=== PATIENT | female | born 1975 | race Caucasian/White ===

== ENCOUNTER 2017-11-22 19:22 | Inpatient (IN) | payer OTHER ==
[~2017-11-22] VITALS: Ht 157.5 cm; Wt 49.7 kg
[2017-11-22] MEDS ORDERED: OLANZapine IM 10 MG VIAL IM ONE (22:00)
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
[2017-11-22 22:52] LABS: ALBUMIN 2.4 GM/DL (3.4-5.0); ALT (GPT) 304 U/L (10-53); AST (GOT) 689 U/L (15-37); BICARBONATE 22.9 MEQ/L (21.0-32.0); BLOOD UREA NITROGEN 8 MG/DL (7-18); CALCIUM 7.6 MG/DL (8.5-10.1); CHLORIDE 103 MEQ/L (98-107); CREATININE 1.03 MG/DL (0.50-1.00); GLOMERULAR FILTRATION RATE 59 ML/MIN (>89); GLUCOSE,RANDOM 109 MG/DL (74-106); SODIUM (NA) 136 MEQ/L (136-145)
[2017-11-22 22:57] LABS: AUTOMATED NEUTROPHIL # 6.3 TH/MM3 (1.8-7.7); BASOPHIL # 0.1 TH/MM3 (0-0.2); BASOPHIL % 0.8 % (0.0-2.0); EOSINOPHIL % 0.4 % (0.0-4.0); HEMATOCRIT 30.2 % (35.0-46.0); HEMOGLOBIN 10.7 GM/DL (11.6-15.3); LYMPH % 13.2 % (9.0-44.0); LYMPHOCYTE # 1.1 TH/MM3 (1.0-4.8); MEAN CELL VOLUME 91.3 FL (80.0-100.0); MEAN CORPUSCULAR HEMOGLOBIN 32.3 PG (27.0-34.0); MEAN CORPUSCULAR HGB CONC 35.4 % (32.0-36.0); MEAN PLATELET VOLUME 9.6 FL (7.0-11.0); MONO % 11.5 % (0.0-8.0); NEUT % 74.1 % (16.0-70.0); PLATELET COUNT 183 TH/MM3 (150-450); RED BLOOD COUNT 3.31 MIL/MM3 (4.00-5.30); WHITE BLOOD COUNT 8.5 TH/MM3 (4.0-11.0)
[2017-11-22 23:01] LABS: ALKALINE PHOSPHATASE 85 U/L (45-117); TOTAL PROTEIN 10.5 GM/DL (6.4-8.2)
[2017-11-22 23:17] LABS: TARGET CELLS 1+ (NORMAL)
[2017-11-23 00:09] LABS: ACETAMINOPHEN LESS THAN 2.0 MCG/ML (10.0-30.0)
--- NOTE | 2017-11-23 00:53 | RADRPT ---
EXAM DATE/TIME: 11/23/2017 00:16 [place] COMPARISON: No previous studies available for comparison. INDICATIONS : Right upper quadrant pain. MEDICAL HISTORY : Right upper quadrant pain. SURGICAL HISTORY : None. ENCOUNTER: Initial ACUITY: 1 day PAIN SCORE: 0/10 LOCATION: Right upper quadrant MEASUREMENTS: LIVER: 12.6 cm length COMMON DUCT: 5 mm RIGHT KIDNEY: 10.8 x 3.8 x 4.8 cm FINDINGS: LIVER: Normal echotexture without focal lesion or ductal dilatation. COMMON DUCT: No intraluminal mass or stone visualized. GALLBLADDER: Trace dependent sludge. Wall thickness upper limits of normal, 3 mm. Negative sonographic Santiago's si gn. PANCREAS: The visualized portions are within normal limits. RIGHT KIDNEY: No evidence of hydronephrosis, stone, or mass. CONCLUSION: No acute abnormality demonstrated. Augusto Izaguirre MD on November 23, 2017 at 0:49 Board Certified Radiologist. This report was verified electronically.
[2017-11-23] MEDS ORDERED: HYDR-3133 PO (06:29)
[2017-11-23] MEDS ORDERED: VENL37.595 PO (06:29)
[2017-11-23] MEDS ORDERED: TRAZ100T10 PO (06:29)
[2017-11-23 08:03] VITALS: BP 133/82; PULSE 90; RESP 17; TEMP 99.4; O2SAT 100
[2017-11-23] MEDS ORDERED: OLANZapine IM 10 MG VIAL IM ONE ×2 (13:49→14:00)
[2017-11-23] MEDS ORDERED: diphenhydrAMINE HCL 50 MG/ML VIAL ONE (13:49)
[2017-11-23 13:56] VITALS: BP 130/81; PULSE 99; RESP 20; TEMP 98.7; O2SAT 99
[2017-11-23] MEDS ORDERED: diphenhydrAMINE HCL 50 MG/ML VIAL IM ONE (14:00)
[2017-11-23] MEDS ORDERED: LORazepam 2 MG/ML VIAL IM ONE ×2 (15:45→21:46)
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
[2017-11-23 17:51] VITALS: BP 125/78; PULSE 76; RESP 18; TEMP 99.4; O2SAT 97
[2017-11-23] MEDS ORDERED: MAGNESIUM HYDROXIDE SUSP 30 ML CUP PO PRN (18:30)
[2017-11-23] MEDS ORDERED: ALUMINUM/MAGNESIUM/SIMETH 30 ML CUP PO PRN (18:30)
[2017-11-23 19:00] VITALS: BP 109/82; PULSE 82; RESP 20; TEMP 97.9; O2SAT 96
[2017-11-23] MEDS ORDERED: HALOPERIDOL LACTATE 5 MG/ML AMP IM ONE (21:46)
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
[2017-11-24] MEDS ORDERED: SODIUM CHLOR 0.9% 1000 ML INJ 1,000 ML IV ONE (09:45)
[2017-11-24] MEDS ORDERED: hydrOXYzine HCL 50 MG TAB PO PRN (10:15)
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
[2017-11-24] MEDS ORDERED: HALOPERIDOL LACTATE 5 MG/ML AMP IM STA (12:03)
[2017-11-24] MEDS ORDERED: LORazepam 2 MG/ML VIAL IM STA (12:03)
[2017-11-24] MEDS ORDERED: diphenhydrAMINE HCL 50 MG/ML VIAL IM STA (12:03)
[2017-11-24] MEDS ORDERED: LORazepam 2 MG/ML VIAL ONE (12:03)
[2017-11-24] MEDS ORDERED: HALOPERIDOL LACTATE 5 MG/ML AMP ONE (12:04)
[2017-11-24 14:08] LABS: INTERNATIONAL NORMALIZED RATIO 1.6 RATIO; PROTHROMBIN TIME - PATIENT 15.7 SEC (9.8-11.6)
[2017-11-24 14:24] LABS: HDL CHOLESTEROL 8.9 MG/DL (40.0-60.0)
[2017-11-24 14:48] LABS: BICARBONATE 29.2 MEQ/L (21.0-32.0); CALCIUM 8.1 MG/DL (8.5-10.1); CHLORIDE 103 MEQ/L (98-107); CHOLESTEROL 123 MG/DL (120-200); CHOLESTEROL/ HDL RATIO 13.82 RATIO; CREATININE 1.39 MG/DL (0.50-1.00); GLOMERULAR FILTRATION RATE 42 ML/MIN (>89); GLUCOSE,RANDOM 86 MG/DL (74-106); LDL CHOLESTEROL 96 MG/DL (0-99); SODIUM (NA) 137 MEQ/L (136-145); TRIGLYCERIDES 89 MG/DL (42-150)
[2017-11-24 14:49] LABS: BLOOD UREA NITROGEN 13 MG/DL (7-18)
[2017-11-24 18:00] VITALS: BP 113/63; PULSE 95; RESP 16; TEMP 98.6; O2SAT 96
--- NOTE | 2017-11-25 11:49 | HHI.PR ---
Subjective Remarks Patient seen and examined. No new somatic complaints. She is angry that she is in the hospital and is preoccupied with the idea that her is cheating on her and she feels that she dropped her off at the hospital to remove her from his life. Regarding her autoimmune hepatitis, she endorses stable, chronic abdominal discomfort. Denies nausea or vomiting. She requests to see her GI doctor, Dr. Berger, since she was supposed to have an appointment with him this week. Objective Vitals Vital Signs Date Time Temp Pulse Resp B/P (MAP) Pulse Ox O2 Delivery O2 Flow Rate FiO2 11/24/17 18:00 98.6 95 16 113/63 (80) 96 I/O 11/24/17 11/24/17 11/24/17 11/25/17 11/25/17 11/25/17 07:00 15:00 23:00 07:00 15:00 23:00 Intake Total 120 ml 720 ml 240 ml Balance 120 ml 720 ml 240 ml Intake Oral 120 ml 720 ml 240 ml # Voids 0 Result Diagram: 11/22/17 2200 11/24/17 1344 Objective Remarks GENERAL: WN, WD female laying comfortably in bed in NAD. SKIN: Warm and dry. HEENT: Pupils equal and round. + Scleral icterus. MMM. NECK: Supple no tender LAD or JVD. HEART: RRR no m/r/g. LUNGS: CTAB without wheezes or crackles. ABDOMEN: +BS. Soft, NT, ND. EXTREMITIES: No LE edema or calf tenderness. NEURO: Awake and alert. PSYCH: Hyperverbal. Angry. Teary. A/P Problem List: (1) Acute psychosis ICD Code: F23 - Brief psychotic disorder Status: Acute (2) Transaminitis ICD Code: R74.0 - Nonspecific elevation of levels of transaminase and lactic acid dehydrogenase [LDH] Status: Acute (3) Autoimmune hepatitis ICD Code: K75.4 - Autoimmune hepatitis (4) Hepatitis C ICD Code: B19.20 - Unspecified viral hepatitis C without hepatic coma Assessment and Plan 42 year old female admitted under Bartlett Act for acute psychosis. Patient with elevated LFTs on admission and with a history of autoimmune hepatitis. Hospitalist consulted to manage medical condition. 1. Autoimmune hepatitis/elevated LFTs/hepatitis C - LFTs markedly elevated with AST 689 and ALT 304 appears stable from [facility] admission - Total bili 5.0 - Ammonia <10, not encephalopathic - Reported history of autoimmune hepatitis diagnosed in 2008 and per pt was recommended to have liver transplant - RUQ US negative - Hepatitis profile pending - IgG significantly elevated - INR elevated at 1.6 - HCV RNA and genotype - GI is Dr. Crow, will consult - Avoid hepatotoxic agents 2. Acute psychosis - Managed per psych 3. DVT prophylaxis - Ambulatory Cherelle Cloud MD Nov 25, 2017 11:49
[2017-11-25 16:04] VITALS: BP 119/71; PULSE 92; RESP 16; TEMP 98; O2SAT 97
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
[2017-11-26 05:06] VITALS: BP 127/71; PULSE 89; RESP 16; TEMP 98.2; O2SAT 99
[2017-11-26 08:00] LABS: AUTOMATED NEUTROPHIL # 1.6 TH/MM3 (1.8-7.7); BASOPHIL # 0.1 TH/MM3 (0-0.2); BASOPHIL % 2.4 % (0.0-2.0); EOSINOPHIL # 0.2 TH/MM3 (0-0.4); EOSINOPHIL % 4.7 % (0.0-4.0); HEMATOCRIT 29.1 % (35.0-46.0); HEMOGLOBIN 10.1 GM/DL (11.6-15.3); LYMPH % 33.2 % (9.0-44.0); LYMPHOCYTE # 1.2 TH/MM3 (1.0-4.8); MEAN CELL VOLUME 92.4 FL (80.0-100.0); MEAN CORPUSCULAR HEMOGLOBIN 32.2 PG (27.0-34.0); MEAN CORPUSCULAR HGB CONC 34.8 % (32.0-36.0); MONO % 17.9 % (0.0-8.0); MONOCYTE # 0.7 TH/MM3 (0-0.9); NEUT % 41.8 % (16.0-70.0); PLATELET COUNT 172 TH/MM3 (150-450); RED BLOOD COUNT 3.15 MIL/MM3 (4.00-5.30); RED CELL DISTRIBUTION WIDTH 18.9 % (11.6-17.2); WHITE BLOOD COUNT 3.8 TH/MM3 (4.0-11.0)
[2017-11-26 08:30] LABS: ALBUMIN 2.1 GM/DL (3.4-5.0); ALKALINE PHOSPHATASE 75 U/L (45-117); ALT (GPT) 266 U/L (10-53); AST (GOT) 567 U/L (15-37); BICARBONATE 25.1 MEQ/L (21.0-32.0); BLOOD UREA NITROGEN 13 MG/DL (7-18); CALCIUM 7.5 MG/DL (8.5-10.1); CHLORIDE 107 MEQ/L (98-107); GLOMERULAR FILTRATION RATE 69 ML/MIN (>89); GLUCOSE,RANDOM 70 MG/DL (74-106); SODIUM (NA) 138 MEQ/L (136-145); TOTAL PROTEIN 9.2 GM/DL (6.4-8.2)
--- NOTE | 2017-11-26 09:52 | HHI.PYPN ---
Subjective Remarks Patient seen in her room with nurse Juaquin and counselor Danelle, chart review, GI consultation reviewed and agreed with and appreciated. Patient discussed with nurse. Patient is somewhat calmer showing less paranoia today though she does not remember my visits prior to today. Patient claims that she does not want to go back with because she is having an affair and [place] with a neighbor next door. She also claims that she was stricken with her liver disease around 2005 at that time she stated her was having an affair and "you no STDs" caused her liver disease. Malaise patient does deny a prior psychiatric contact hospitalization her psychotropic medications she continues to minimize her marijuana use. Denies suicidality voices or visions. Review of Systems Except as stated in HPI: all other systems reviewed are Neg Mental Status Examination Appearance: Appropriate Consciousness: Alert Orientation: Person, Place, Date/Time Motor Activity: Normal gait Speech: Rapid Language: Adequate Fund of Knowledge: Adequate Attention and Concentration: Easily Distracted Memory: Impaired (fair) Mood: Sad, Anxious Affect: Other (restricted) Thought Process & Associations: Tangential Thought Content: Bizarre thinking, Delusional Hallucination Type: None Delusion Type: Paranoid Suicidal Ideation: No Suicidal Plan: No Suicidal Intention: No Homicidal Ideation: No Homicidal Plan: No Homicidal Intention: No Insight: Poor Judgment: Poor Results Labs Test 11/26/17 06:41 White Blood Count 3.8 TH/MM3 Red Blood Count 3.15 MIL/MM3 Hemoglobin 10.1 GM/DL Hematocrit 29.1 % Mean Corpuscular Volume 92.4 FL Mean Corpuscular Hemoglobin 32.2 PG Mean Corpuscular Hemoglobin Concent 34.8 % Red Cell Distribution Width 18.9 % Platelet Count 172 TH/MM3 Mean Platelet Volume 9.0 FL Neutrophils (%) (Auto) 41.8 % Lymphocytes (%) (Auto) 33.2 % Monocytes (%) (Auto) 17.9 % Eosinophils (%) (Auto) 4.7 % Basophils (%) (Auto) 2.4 % Neutrophils # (Auto) 1.6 TH/MM3 Lymphocytes # (Auto) 1.2 TH/MM3 Monocytes # (Auto) 0.7 TH/MM3 Eosinophils # (Auto) 0.2 TH/MM3 Basophils # (Auto) 0.1 TH/MM3 CBC Comment AUTO DIFF Differential Comment AUTO DIFF CONFIRMED Blood Urea Nitrogen 13 MG/DL Creatinine 0.90 MG/DL Random Glucose 70 MG/DL Total Protein 9.2 GM/DL Albumin 2.1 GM/DL Calcium Level 7.5 MG/DL Alkaline Phosphatase 75 U/L Aspartate Amino Transf (AST/SGOT) 567 U/L Alanine Aminotransferase (ALT/SGPT) 266 U/L Total Bilirubin 4.0 MG/DL Sodium Level 138 MEQ/L Potassium Level 3.6 MEQ/L Chloride Level 107 MEQ/L Carbon Dioxide Level 25.1 MEQ/L Anion Gap 6 MEQ/L Estimat Glomerular Filtration Rate 69 ML/MIN Vitals/IOs Vital Signs Date Time Temp Pulse Resp B/P (MAP) Pulse Ox O2 Delivery O2 Flow Rate FiO2 11/26/17 05:06 98.2 89 16 127/71 (89) 99 11/23/17 17:51 Room Air Intake and Output 11/26/17 11/26/17 11/27/17 08:00 16:00 00:00 Intake Total 360 ml Balance 360 ml Assessment & Plan Problem List: (1) Brief psychotic disorder ICD Codes: F23 - Brief psychotic disorder Status: Acute Assessment & Plan Estimated LOS: days at this time it appears in her psychosis is softening. We do need to gain further information from patient's related to the veracity of his alleged miss behaviors. Otherwise patient no behavioral problem. For now continue treatment Justification for Cont. Inpt. At this time patient will decompensate and placed on the lower level of care Discharge Planning To be determined Request HC Surrog/Guard Advoc?: No Augusto Sheppard MD Nov 26, 2017 09:52
[2017-11-26] MEDS ORDERED: HALOPERIDOL LACTATE 5 MG/ML AMP IM STA (12:27)
[2017-11-26] MEDS ORDERED: LORazepam 2 MG/ML VIAL IM STA (12:27)
[2017-11-26] MEDS ORDERED: LORazepam 2 MG/ML VIAL ONE (12:29)
[2017-11-26] MEDS ORDERED: HALOPERIDOL LACTATE 5 MG/ML AMP ONE (12:29)
[2017-11-26 12:31] LABS: HEPATITIS A AB IGM NEGATIVE (NEGATIVE); HEPATITIS B CORE AB IGM NEGATIVE (NEGATIVE)
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
[2017-11-26 16:37] LABS: HEMOGLOBIN A1C 4.7 % (4.3-6.0)
[2017-11-26 17:08] VITALS: BP 105/78; PULSE 76; RESP 16; TEMP 98; O2SAT 100
[2017-11-27 05:39] VITALS: BP 124/73; PULSE 79; RESP 16; TEMP 98; O2SAT 100
--- NOTE | 2017-11-27 09:01 | HHI.PYPN ---
Subjective Remarks Patient seen in her room with nurse petra, chart review, patient discussed with nurse. Patient did need when necessary medication yesterday for increased [id number] behaviors. However this morning patient is calm pleasant with me still showing no significant insight into her own behaviors or acknowledging her contribution by her behaviors to this hospitalization. Who she does appear to show some slight processing of the process of the Bartlett act. She did show some tears when we attempted to discuss the past present and possible future of her relationship with her . For now will continue without psychotropics at patient shows behavioral problems this afternoon will consider addition of small dose of antipsychotic either Haldol or Zyprexa Review of Systems Except as stated in HPI: all other systems reviewed are Neg Mental Status Examination Appearance: Appropriate Consciousness: Alert Orientation: Person, Place, Date/Time Motor Activity: Normal gait Speech: Rapid Language: Adequate Fund of Knowledge: Adequate Attention and Concentration: Easily Distracted Memory: Impaired (fair) Mood: Sad, Anxious Affect: Other (restricted) Thought Process & Associations: Tangential Thought Content: Bizarre thinking, Delusional Hallucination Type: None Delusion Type: Paranoid Suicidal Ideation: No Suicidal Plan: No Suicidal Intention: No Homicidal Ideation: No Homicidal Plan: No Homicidal Intention: No Insight: Poor Judgment: Poor Results Labs Test 11/27/17 08:08 Vitals/IOs Vital Signs Date Time Temp Pulse Resp B/P (MAP) Pulse Ox O2 Delivery O2 Flow Rate FiO2 11/27/17 05:39 98.0 79 16 124/73 (90) 100 11/23/17 17:51 Room Air Intake and Output 11/27/17 11/27/17 11/28/17 08:00 16:00 00:00 Intake Total 120 ml 120 ml Balance 120 ml 120 ml Assessment & Plan Problem List: (1) Brief psychotic disorder ICD Codes: F23 - Brief psychotic disorder Status: Acute Assessment & Plan Estimated LOS: days patient somewhat calmer today showed some sadness when discussing possible future of her relationship with her . August vigilance is decreased she has calmer more appropriate balance angry with me Justification for Cont. Inpt. At this time patient will decompensate and placed on the lower level of care Discharge Planning This next week determined possibly back with Request HC Surrog/Guard Advoc?: Augusto Cline MD Nov 27, 2017 09:01
[2017-11-27 09:21] LABS: ALBUMIN 2.2 GM/DL (3.4-5.0); BICARBONATE 23.6 MEQ/L (21.0-32.0); BLOOD UREA NITROGEN 14 MG/DL (7-18); CALCIUM 7.7 MG/DL (8.5-10.1); CHLORIDE 104 MEQ/L (98-107); CREATININE 0.89 MG/DL (0.50-1.00); GLOMERULAR FILTRATION RATE 70 ML/MIN (>89); GLUCOSE,RANDOM 80 MG/DL (74-106); SODIUM (NA) 136 MEQ/L (136-145)
[2017-11-27 09:22] LABS: ALT (GPT) 278 U/L (10-53); AST (GOT) 575 U/L (15-37)
[2017-11-27 09:25] LABS: ALKALINE PHOSPHATASE 75 U/L (45-117); TOTAL BILIRUBIN ADULT 4.2 MG/DL (0.2-1.0); TOTAL PROTEIN 9.8 GM/DL (6.4-8.2)
[2017-11-27] MEDS: HALOPERIDOL 2 MG TAB PO SCH ×2 (11:45→21:00)
[2017-11-27] MEDS ORDERED: HALOPERIDOL LACTATE 5 MG/ML AMP IM PRN (11:45)
[2017-11-27 18:34] VITALS: BP 114/76; PULSE 82; RESP 16; TEMP 98.3; O2SAT 98
[2017-11-28 06:00] VITALS: BP 113/73; PULSE 81; RESP 15; TEMP 97.9; O2SAT 99
[2017-11-28] MEDS: HALOPERIDOL 2 MG TAB PO SCH (09:00)
[2017-11-28] MEDS ORDERED: HALO2TAB PO (12:15)
[2017-11-28] MEDS ORDERED: REME15TA PO (12:15)
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
--- NOTE | 2017-11-28 14:56 | PD.TTN ---
Patient Problems 1. Discharge planning 2. Medication compliance 3. Knowledge deficit 4. Lack of coping skills Progress Toward Goals Provider Present: Dr. Amilcar Sheppard Provider Input: 11/28/2017; family meeting schedule for today and if all goes well patient will be dc home 11/26/2017; patient is a weekend admission, she is being assess for medical and mental health needs. Nurse(s) Present: RN Nurse(s) Input: 11/28/2017; patient is less anxious, much emotional improvement 11/26/2017; patient is anxious with agitated feedback, very angry with her Psychiatric Counselors Present: ALAN Murphy Psych Therapist Input: 11/28/2017; counselor will schedule outpatient follow-up care 11/26/2017; counselor will assesss patient for outpatient needs, and speak with family for collateral Group Spec/RT/OT/TEJEDA Present: ELIZA Lopez Spec/RT/OT/TEJEDA Input: 11/26/2017; patient refuses to participate with groups or activities Documentation Scribe: Danelle Cho Nov 28, 2017 14:56
[2017-11-29 07:50] LABS: HCV RNA PCR IU/ML LESS THAN 15 IU/mL (Not Detected)
== END 2017-11-28 13:25 | disposition home or self-care (01) | DRG 885 ==
LOC: NEDAMB 19:22 → NEDA 11-23 18:20 → H4EA 11-23 19:05
PROVIDERS: ADMIT Psychiatry & Neurology Psychiatry; ATTEND Psychiatry & Neurology Psychiatry
DX: F23 Brief psychotic disorder (principal); Z78.1 Physical restraint status; K75.4 Autoimmune hepatitis; F43.21 Adjustment disorder with depressed mood; F12.90 Cannabis use, unspecified, uncomplicated; F41.9 Anxiety disorder, unspecified; R79.1 Abnormal coagulation profile
CPT/HCPCS: 76705; 80048; 80053; 80061; 80074; 80307; 82140; 82784; 83036; 84443; 85025; 85610; 87522; 87902; 96372; J1200; J1630; J2060